=== PATIENT | female | born 1995 | race Caucasian/White ===

== ENCOUNTER 2024-12-19 14:30 | Emergency (ER) | payer SELFPAY ==
--- NOTE | ~2024-12-19 | XR_ITS ---
EXAM: XR foot LT min 3V, XR toe 1st LT min 2V DATE: 12/19/2024 14:55 HISTORY: Lt. foot pain and swelling after fall . COMPARISON: None available. FINDINGS: Normal mineralization. No fracture or dislocation. No lytic or blastic lesion. Joint space s are maintained. Os navicularis. No erosion or periosteal change. Soft tissues swelling over the fir st toe. IMPRESSION: No acute osseous finding in the left foot or left great toe. Reviewed, dictated and finalized at location K. IMPRESSION: No acute osseous finding in the left foot or left great toe.
[2024-12-19 14:31] VITALS: BP 159/96; PULSE 108; RESP 18; TEMP 36.5; O2SAT 100
--- OUTSIDE RECORDS SUMMARY | 2024-12-19 14:32 | XMS_ITS | Clinical Summary ---
Author Organization [facility] Address [address] [place] [id number] Care Team Providers Care Warp Splitter Name Role Phone Ronnie Beal MD Primary Care Provider Social History Tobacco Use Types Packs/Day Years Used Date Smoking Tobacco: Never Assessed Comments Unknown Sex and Gender Information Value Date Recorded Sex Assigned at Not on file Legal Sex Female 11:08 PM CDT Gender Identity Not on file Sexual Orientation Not on file Plan of Treatment Health Maintenance Due Date Last Done Comments Cervical Cancer Screening Pap Smear (Age 30 to 64) Every 3 Years 1994 Annual Physical 1997 HPV Vaccines (3 - 3-dose series) 12/15/2011 08/15/2011, 06/16/2011 Hepatitis C 2012 DTaP, Tdap and Td Vaccines (2 - Tdap) 2013 05/26/1998, 1994, 1994, Additional history exists Hepatitis B Vaccines (1 of 3 - 19+ 3-dose series) 2013 Cervical Cancer Screening Pap with HPV Testing (Age 30 to 64) Every 5 Years 2024 Cervical Cancer Screening with HPV 2024 COVID-19 Vaccine ( season) 2024 Influenza Adult (#1) 2024 Meningococcal B Vaccine Aged Out No l onger eligible based on patient's age to complete this topic Meningococcal Vaccine Aged Out No michelle nicolas eligible based on patient's age to complete this topic Pneumococcal Vaccine: Pediatrics (0 to 5 Years) and At-Risk Patients (6 to 64 Years) Aged Out No longer eligible based on patient's age to complete this topic RSV Immunizations Under 20 Months Aged Out No longer eligible based on patient's age to complete this topic Insurance [facility] Care Teams Warp Splitter Relationship Specialty Start Date End Date Ronnie Beal MD [address] [place] [id number] PCP - General FAMILY PRACTICE 09/15/20
--- NOTE | 2024-12-19 14:43 | ED.GENADULT ---
HPI - General Adult General Stated complaint: left foot pain Time Seen by Provider: 12/19/24 14:37 History of Present Illness HPI narrative: Patient reports that are on the afternoon of 12/18/2024 she tripped on her back porch and fell forward onto her knees. This was a mechanical fall. She is unsure of exactly what happened but following the event she had pain more less exclusively in her left great toe. This morning she woke up and she has swelling and stiffness in that toe and noted some bruising around the toe. She reports that she has mild abrasions on her knees but no other injuries whatsoever the event. She did not hit her head. She was not knocked unconscious. It was a mechanical fall and not a syncopal event. Related Data Allergies Allergy/AdvReac Type Severity Reaction Status Date / Time amoxicillin Allergy Unknown unknown Verified 05/01/21 08:25 clavulanic acid Allergy Unknown unknown Verified 05/01/21 08:25 [facility] Social History Social History Alcohol intake: never Substance use: never Exam Narrative: Mild swelling and ecchymosis over the 1st joint of the left great toe. base of the toe is tender to palpation. active and passive range of motion are intact. Distal circulation and sensation are intact. No other abnormalities noted on inspection, or palpation the left foot. No other injuries noted on gross exam of the patient. Course Vital Signs Vital signs: Vital Signs Temperature 36.5 C 12/19/24 14:31 Pulse Rate 108 H 12/19/24 14:31 Respiratory Rate 18 12/19/24 14:31 Blood Pressure 159/96 H 12/19/24 14:31 Pulse Oximetry 100 12/19/24 14:31 Oxygen Delivery Room Air 12/19/24 14:31 Temperature 36.5 C 12/19/24 14:31 Pulse Rate 108 H 12/19/24 14:31 Respiratory Rate 18 12/19/24 14:31 Blood Pressure 159/96 H 12/19/24 14:31 Pulse Oximetry 100 12/19/24 14:31 Oxygen Delivery Room Air 12/19/24 14:31 Medical Decision Making MDM Narrative Medical decision making narrative: Patient was placed in Room #:? One Independent Historian: the patient External Source Review: none Differential diagnosis includes but not limited to:? toe fracture, toe sprain Medications were Reviewed: home medications Independently Interpreted by me: Padmini Medications, treatment, ED course: x-ray of the patient's left great toe demonstrates no fractures or other osseous abnormality Social situation impacting patients care: lives independently in the community Shared decision making:? amenable to treatment today and follow up with her primary care Accepting physician: Padmini DISCHARGE DIAGNOSIS: sprained great toe DISPOSITION: home with self-care CONDITION AT DISCHARGE:? stable Vital Signs Vital Signs: Vital Signs Temperature 36.5 C 12/19/24 14:31 Pulse Rate 108 H 12/19/24 14:31 Respiratory Rate 18 12/19/24 14:31 Blood Pressure 159/96 H 12/19/24 14:31 Pulse Oximetry 100 12/19/24 14:31 Oxygen Delivery Room Air 12/19/24 14:31 Temperature 36.5 C 12/19/24 14:31 Pulse Rate 108 H 12/19/24 14:31 Respiratory Rate 18 12/19/24 14:31 Blood Pressure 159/96 H 12/19/24 14:31 Pulse Oximetry 100 12/19/24 14:31 Oxygen Delivery Room Air 12/19/24 14:31 Discharge Plan Discharge Clinical Impression: Sprain of toe Patient Disposition: Home, Self-Care Condition: Stable Instructions: Antibiotic Form Additional Instructions: the x-ray of your foot does not show any fractures severe toe. He most likely have a sprain of your toe. This is stretch and some tearing of the muscles and ligaments around the toe. Overall I think that you Will most likely make a full recovery. I have given you some home exercises that he can do for 5 times a week for the next 6 weeks. If her symptoms do not improve or get any worse follow-up with your primary care as you may need additional formal physical therapy. the nursing staff should he had a antonio tape her toes together and you can do this for as long as you feel like it is helpful with the pain. Additionally for pain you can take 400 mg of ibuprofen every 6 hours or a 1000 mg of Tylenol every 8 hours. Only take these as needed if you are feeling pain or discomfort. Patient Language: Romanian Follow-up/Referrals: UNKNOWN,DOCTOR [Primary Care Provider] - Time of Disposition: 15:31
--- OUTSIDE RECORDS SUMMARY | 2024-12-19 15:12 | XMS_ITS | Clinical Summary ---
Author Organization [facility] Address [address] [place] [id number] Care Team Providers Care Hose Mender Name Role Phone Ronnie Beal MD Primary [...] patient's age to complete this topic Insurance [facility] Care Teams Hose Mender Relationship Specialty Start Date End Date Ronnie Beal MD [address] [place] [id number] PCP - General FAMILY PRACTICE 09/15/20
[2024-12-19 15:33] VITALS: BP 148/94; PULSE 86; RESP 18; TEMP 36.6; O2SAT 100
== END 2024-12-19 15:42 | disposition home or self-care (01) ==
PROVIDERS: Emergency Provider Family Medicine
DX: S93.502A Unspecified sprain of left great toe, initial encounter (principal); W19.XXXA Unspecified fall, initial encounter
CPT/HCPCS: 73630; 73660; 99283